=== PATIENT | male | born 1940 | race Caucasian/White ===

== ENCOUNTER 2017-11-30 13:09 | Inpatient (IN) | payer MEDICARE ==
[~2017-11-30] VITALS: Ht 185.4 cm; Wt 100.5 kg
[2017-11-30] VITALS (9 sets, daily range): BP systolic 119–166; BP diastolic 73–93; PULSE 62–106; RESP 14–18; TEMP 98.4–99; O2SAT 96–99
--- NOTE | 2017-11-30 14:13 | RADRPT ---
EXAM DATE/TIME: 11/30/2017 13:42 [place] COMPARISON: No previous studies available for comparison. INDICATIONS : sent pt, heart rhythm is off. MEDICAL HISTORY : None. SURGICAL HISTORY : cabg 10 years ago. ENCOUNTER: Initial ACUITY: 1 day PAIN SCORE: 0/10 LOCATION: Bilateral chest FINDINGS: The lungs are clear. The heart is minimally enlarged. The pulmonary vascularity is normal. There is n o evidence for infiltrate or failure. Sternal wires of previous bypass are noted. The portion of the bony skeleton visualized is unremarkable. CONCLUSION: Compensated cardiomegaly, history of bypass otherwise negative Tobias Spencer MD FACR on November 30, 2017 at 14:07 Board Certified Radiologist. This report was verified electronically.
[2017-11-30 15:49] LABS: AUTOMATED NEUTROPHIL # 4.3 TH/MM3 (1.8-7.7); BASOPHIL % 0.5 % (0.0-2.0); EOSINOPHIL # 0.5 TH/MM3 (0-0.4); EOSINOPHIL % 5.8 % (0.0-4.0); HEMATOCRIT 47.9 % (39.0-51.0); HEMOGLOBIN 16.7 GM/DL (13.0-17.0); LYMPH % 34.2 % (9.0-44.0); MEAN CELL VOLUME 92.7 FL (80.0-100.0); MEAN CORPUSCULAR HEMOGLOBIN 32.4 PG (27.0-34.0); MEAN CORPUSCULAR HGB CONC 34.9 % (32.0-36.0); MEAN PLATELET VOLUME 8.5 FL (7.0-11.0); MONO % 9.3 % (0.0-8.0); MONOCYTE # 0.8 TH/MM3 (0-0.9); NEUT % 50.2 % (16.0-70.0); PLATELET COUNT 312 TH/MM3 (150-450); RED BLOOD COUNT 5.16 MIL/MM3 (4.50-5.90); RED CELL DISTRIBUTION WIDTH 12.8 % (11.6-17.2); WHITE BLOOD COUNT 8.6 TH/MM3 (4.0-11.0)
[2017-11-30 16:00] LABS: ALBUMIN 4.1 GM/DL (3.4-5.0); ALT (GPT) 143 U/L (12-78); AST (GOT) 81 U/L (15-37); BICARBONATE 25.1 MEQ/L (21.0-32.0); BLOOD UREA NITROGEN 20 MG/DL (7-18); CALCIUM 9.1 MG/DL (8.5-10.1); CHLORIDE 104 MEQ/L (98-107); CREATININE 1.18 MG/DL (0.60-1.30); GLOMERULAR FILTRATION RATE 60 ML/MIN (>89); GLUCOSE,RANDOM 87 MG/DL (74-106); MAGNESIUM 2.1 MG/DL (1.5-2.5); SODIUM (NA) 138 MEQ/L (136-145)
[2017-11-30 16:05] LABS: ALKALINE PHOSPHATASE 172 U/L (45-117); TOTAL BILIRUBIN ADULT 0.7 MG/DL (0.2-1.0); TOTAL PROTEIN 9.6 GM/DL (6.4-8.2)
[2017-11-30 16:12] LABS: TROPONIN I 4.75 NG/ML (0.02-0.05)
[2017-11-30] MEDS ORDERED: METO1TAB43 PO (16:28)
[2017-11-30] MEDS ORDERED: ASPI-183 PO (16:28)
--- NOTE | 2017-11-30 16:29 | PD ---
HPI Chief Complaint: Cardiac Complaint Time Seen by Provider: 16:25 Travel History International Travel<30 days: No Contact w/Intl Traveler<30days: No Traveled to known affect area: No History of Present Illness HPI C/O THROAT BURNING SENSATION AT AROUND 2300 SINCE LAST NIGHT THAT KEPT HIM UP ALL NIGHT, HE PRESENTED TO WALK IN CLINIC THIS MORNING WHEN HE WAS DIAGNOSED WITH NEW ONSET ATRIAL FIB...PER PT NO PREVIOUS H/O AFIB, NOT ANTICOAGULATED AND TOOK A FULL ASPIRIN TODAY. PCP IN [place] ALL DENIES PMHX: HTN, HYPERCHOL, CABBGX5 Allergies-Medications (Allergen,Severity, Reaction): Coded Allergies: No Known Allergies (Unverified , 11/30/17) Review of Systems Except as stated in HPI: all other systems reviewed are Neg General / Constitutional: No: Fever Eyes: No: Visual changes HENT: Positive: Sore Throat Cardiovascular: No: Chest Pain or Discomfort Respiratory: No: Shortness of Breath Gastrointestinal: No: Abdominal Pain Genitourinary: No: Dysuria Musculoskeletal: No: Pain Skin: No Rash Neurologic: No: Weakness Psychiatric: No: Depression Endocrine: No: Polydipsia Hematologic/Lymphatic: No: Easy Bruising Physical Exam Narrative GENERAL: SKIN: Warm and dry. HEAD: Atraumatic. Normocephalic. EYES: Pupils equal and round. No scleral icterus. No injection or drainage. ENT: No nasal bleeding or discharge. Mucous membranes pink and moist. NECK: Trachea midline. No JVD. CARDIOVASCULAR: Regular rate and rhythm. RESPIRATORY: No accessory muscle use. Clear to auscultation. Breath sounds equal bilaterally. GASTROINTESTINAL: Abdomen soft, non-tender, nondistended MUSCULOSKELETAL: Extremities without clubbing, cyanosis, or edema. No obvious deformities. NEUROLOGICAL: Awake and alert. No obvious cranial nerve deficits. Motor grossly within normal limits. Five out of 5 muscle strength in the arms and legs. Normal speech. PSYCHIATRIC: Appropriate mood and affect; insight and judgment normal. Data Data Last Documented VS Vital Signs Date Time Temp Pulse Resp B/P (MAP) Pulse Ox O2 Delivery O2 Flow Rate FiO2 11/30/17 13:11 98.4 106 14 128/73 (91) 97 Orders Orders Complete Blood Count With Diff (11/30/17 13:32) Comprehensive Metabolic Panel (11/30/17 13:32) B-Type Natriuretic Peptide (11/30/17 13:32) Act Partial Throm Time (Ptt) (11/30/17 13:32) Prothrombin Time / Inr (Pt) (11/30/17 13:32) Magnesium (Mg) (11/30/17 13:32) Ckmb (Isoenzyme) Profile (11/30/17 13:32) Troponin I (11/30/17 13:32) Electrocardiogram (11/30/17 13:32) Chest, Pa & Lat (11/30/17 13:32) CKMB (11/30/17 15:17) CKMB% (11/30/17 15:17) Labs Laboratory Tests Test 11/30/17 15:17 White Blood Count 8.6 TH/MM3 Red Blood Count 5.16 MIL/MM3 Hemoglobin 16.7 GM/DL Hematocrit 47.9 % Mean Corpuscular Volume 92.7 FL Mean Corpuscular Hemoglobin 32.4 PG Mean Corpuscular Hemoglobin Concent 34.9 % Red Cell Distribution Width 12.8 % Platelet Count 312 TH/MM3 Mean Platelet Volume 8.5 FL Neutrophils (%) (Auto) 50.2 % Lymphocytes (%) (Auto) 34.2 % Monocytes (%) (Auto) 9.3 % Eosinophils (%) (Auto) 5.8 % Basophils (%) (Auto) 0.5 % Neutrophils # (Auto) 4.3 TH/MM3 Lymphocytes # (Auto) 3.0 TH/MM3 Monocytes # (Auto) 0.8 TH/MM3 Eosinophils # (Auto) 0.5 TH/MM3 Basophils # (Auto) 0.0 TH/MM3 CBC Comment DIFF FINAL Differential Comment Prothrombin Time 10.0 SEC Prothromb Time International Ratio 1.0 RATIO Activated Partial Thromboplast Time 26.8 SEC Blood Urea Nitrogen 20 MG/DL Creatinine 1.18 MG/DL Random Glucose 87 MG/DL Total Protein 9.6 GM/DL Albumin 4.1 GM/DL Calcium Level 9.1 MG/DL Magnesium Level 2.1 MG/DL Alkaline Phosphatase 172 U/L Aspartate Amino Transf (AST/SGOT) 81 U/L Alanine Aminotransferase (ALT/SGPT) 143 U/L Total Bilirubin 0.7 MG/DL Sodium Level 138 MEQ/L Potassium Level 4.0 MEQ/L Chloride Level 104 MEQ/L Carbon Dioxide Level 25.1 MEQ/L Anion Gap 9 MEQ/L Estimat Glomerular Filtration Rate 60 ML/MIN Total Creatine Kinase 132 U/L Creatine Kinase MB 9.6 NG/ML Troponin I 4.75 NG/ML B-Type Natriuretic Peptide 390 PG/ML MDM Medical Decision Making Medical Screen Exam Complete: Yes Emergency Medical Condition: Yes Medical Record Reviewed: Yes Interpretation(s) AFIB WITH CVR, NO STEMI PATTERN Critical Care Narrative CRITICAL CARE NOTE: With evaluation of the patient, labs, EKG, receipt of radiologic studies, administration of medications, reevaluation the patient and discussion of the patient with the admitting physicians, the total critical care time was [30] minutes. Time to perform other separately billable procedures was not included in the critical care time. Diagnosis Primary Impression: NONSTEMI Additional Impression: New onset a-fib Goyo Mojica MD Nov 30, 2017 16:29
[2017-11-30] MEDS ORDERED: NITROGLYCERIN 2% OINT 1 GM PACKET TOP ONE (16:45)
[2017-11-30] MEDS ORDERED: DILTIAZEM HCL 25 MG/5 ML VIAL IV ONE (16:45)
[2017-11-30] MEDS ORDERED: ENOXAPARIN SODIUM 80 MG/0.8 ML SYRINGE SQ ONE (16:45)
[2017-11-30] MEDS ORDERED: METOPROLOL TARTRATE 25 MG TAB PO ONE (17:15)
[2017-11-30] MEDS ORDERED: NALOXONE HCL 0.4 MG/ML AMP IV PUSH PRN (17:15)
[2017-11-30] MEDS ORDERED: SODIUM CHLORIDE 0.9% FLUSH 10 ML FLUSH IV FLUSH PRN (17:15)
[2017-11-30] MEDS ORDERED: MAGNESIUM HYDROXIDE SUSP 30 ML CUP PO PRN (17:15)
[2017-11-30] MEDS ORDERED: LACTULOSE SYRUP 20 GM/30 ML CUP PO PRN (17:15)
[2017-11-30] MEDS ORDERED: ACETAMINOPHEN 325 MG TAB PO PRN (17:15)
[2017-11-30] MEDS ORDERED: BISACODYL 10 MG SUPP RECTAL PRN (17:15)
[2017-11-30] MEDS ORDERED: SENNOSIDES 8.6 MG TAB PO PRN (17:15)
--- NOTE | 2017-11-30 20:41 | HHI.HP ---
HPI Service [facility] Primary Care Physician Unknown Admission Diagnosis NONSTEMI, NEW ONSET AFIB Diagnoses: Chief Complaint: Throat, chest burning sensation. Travel History International Travel<30 Days: No Contact w/Intl Traveler <30 Da: No Traveled to Known Affected Are: No History of Present Illness Mr. Condon is a pleasant 77 year old male with a history of CAD s/p CABG who presented to the ED due to a burning sensation in his throat, substernal chest with radiation to his neck to bilateral ears. He reports onset of these symptoms approximately two weeks ago. He attributed these symptoms to acid reflux. He did not have any nausea, vomiting, diaphoresis. Last night his symptoms were particularly worse and kept him up all night. Nothing seems to make it worse or bettter. He went to an urgent care and an EKG revealed Atrial Fibrillation and was directed to come to the ED. At the time of this interview, he reports no chest pain, shortness of breath, fever, chills. No cough, abdominal pain. No changes in bladder or bowel habits. He has taken a full dose (325mg) aspirin today. Review of Systems Except as stated in HPI: all other systems reviewed are Neg Past Family Social History Past Medical History CAD s/p CABG Hyperlipidemia Brain tumor (20 years ago). Past Surgical History CABG 11 years ago (Dr. Radha Croewll apparently did patient's surgery). Right leg surgery Brain tumor removal 20 years ago. Reported Medications Metoprolol succ 100mg Qday Aspirin 325mg Qday. Allergies: Coded Allergies: No Known Allergies (Unverified , 11/30/17) Family History Father from [place], Cardiomyopathy at the age of 76. Mother of old age at 94. Social History Drinks beer about 2 beer a day. Denies smoking or using illicit drugs. Quit smoking 20 years ago. Physical Exam Vital Signs Vital Signs Date Time Temp Pulse Resp B/P (MAP) Pulse Ox O2 Delivery O2 Flow Rate FiO2 11/30/17 20:03 11/30/17 19:34 62 16 133/84 (100) 99 Nasal Cannula 2.00 11/30/17 17:46 83 18 166/90 (115) 99 Room Air 11/30/17 13:11 98.4 106 14 128/73 (91) 97 Physical Exam GENERAL: This is a well-nourished, well-developed patient, in no apparent distress. SKIN: No rashes, ecchymoses or lesions. Warm and dry. HEAD: Atraumatic. Normocephalic. No temporal or scalp tenderness. EYES: Pupils equal round and reactive. No injection or drainage. ENT: Nose without bleeding, purulent drainage or septal hematoma. Airway patent. NECK: Trachea midline. No lymphadenopathy. Supple, nontender, no meningeal signs. CARDIOVASCULAR: Irreg Irreg, rate controlled without murmurs, gallops, or rubs. No JVD. RESPIRATORY: Clear to auscultation. Breath sounds equal bilaterally. No wheezes , rales, or rhonchi. GASTROINTESTINAL: Abdomen soft, non-tender, nondistended. No guarding. MUSCULOSKELETAL: Extremities without clubbing, cyanosis, or edema. NEUROLOGICAL: Awake and alert. Cranial nerves II through XII intact. No focal neurological deficits. Normal speech. Laboratory Laboratory Tests Test 11/30/17 15:17 11/30/17 19:17 White Blood Count 8.6 Red Blood Count 5.16 Hemoglobin 16.7 Hematocrit 47.9 Mean Corpuscular Volume 92.7 Mean Corpuscular Hemoglobin 32.4 Mean Corpuscular Hemoglobin Concent 34.9 Red Cell Distribution Width 12.8 Platelet Count 312 Mean Platelet Volume 8.5 Neutrophils (%) (Auto) 50.2 Lymphocytes (%) (Auto) 34.2 Monocytes (%) (Auto) 9.3 Eosinophils (%) (Auto) 5.8 Basophils (%) (Auto) 0.5 Neutrophils # (Auto) 4.3 Lymphocytes # (Auto) 3.0 Monocytes # (Auto) 0.8 Eosinophils # (Auto) 0.5 Basophils # (Auto) 0.0 CBC Comment DIFF FINAL Differential Comment Prothrombin Time 10.0 Prothromb Time International Ratio 1.0 Activated Partial Thromboplast Time 26.8 Blood Urea Nitrogen 20 Creatinine 1.18 Random Glucose 87 Total Protein 9.6 Albumin 4.1 Calcium Level 9.1 Magnesium Level 2.1 Alkaline Phosphatase 172 Aspartate Amino Transf (AST/SGOT) 81 Alanine Aminotransferase (ALT/SGPT) 143 Total Bilirubin 0.7 Sodium Level 138 Potassium Level 4.0 Chloride Level 104 Carbon Dioxide Level 25.1 Anion Gap 9 Estimat Glomerular Filtration Rate 60 Total Creatine Kinase 132 Creatine Kinase MB 9.6 Troponin I 4.75 B-Type Natriuretic Peptide 390 Result Diagram: 11/30/17 1517 11/30/17 1517 Imaging Last Impressions Chest X-Ray 11/30/17 1332 Signed Impressions: Service Date/Time: Thursday, November 30, 2017 13:42 - CONCLUSION: Compensated cardiomegaly, history of bypass otherwise negative Tobias Spencer MD FACR [place] VTE Risk Assessment Capsangeethai VTE Risk Assessment: Mod/High Risk (score >= 2) Caprini Risk Assessment Model Point Value = 1 Point Value = 2 Point Value = 3 Point Value = 5 Age 41-60 Minor surgery BMI > 25 kg/m2 Swollen legs Varicose veins or History of unexplained or recurrent spontaneous Oral contraceptives or hormone replacement Sepsis (< 1 month) Serious lung disease, including pneumonia (< 1 month) Abnormal pulmonary function Acute myocardial infarction Congestive heart failure (< 1 month) History of inflammatory bowel disease Medical patient at bed rest Age 61-74 Arthroscopic surgery Major open surgery (> 45 min) Laparoscopic surgery (> 45 min) Malignancy Confined to bed (> 72 hours) Immobilizing plaster cast Central venous access Age >= 75 History of VTE Family history of VTE Factor V Leiden Prothrombin [id number] Lupus anticoagulant Anticardiolipin antibodies Elevated serum homocysteine Heparin-induced thrombocytopenia Other congenital or acquired thrombophilia Stroke (< 1 month) Elective arthroplasty Hip, pelvis, or leg fracture Acute spinal cord injury (< 1 month) Prophylaxis Regimen Total Risk Factor Score Risk Level Prophylaxis Regimen 0-1 Low Early ambulation 2 Moderate Order ONE of the following: *Sequential Compression Device (SCD) *Heparin 5000 units SQ BID 3-4 Higher Order ONE of the following medications: *Heparin 5000 units SQ TID *Enoxaparin/Lovenox 40 mg SQ daily (WT < 150 kg, CrCl > 30 mL/min) *Enoxaparin/Lovenox 30 mg SQ daily (WT < 150 kg, CrCl > 10-29 mL/min) *Enoxaparin/Lovenox 30 mg SQ BID (WT < 150 kg, CrCl > 30 mL/min) AND/OR *Sequential Compression Device (SCD) 5 or more Highest Order ONE of the following medications: *Heparin 5000 units SQ TID (Preferred with Epidurals) *Enoxaparin/Lovenox 40 mg SQ daily (WT < 150 kg, CrCl > 30 mL/min) *Enoxaparin/Lovenox 30 mg SQ daily (WT < 150 kg, CrCl > 10-29 mL/min) *Enoxaparin/Lovenox 30 mg SQ BID (WT < 150 kg, CrCl > 30 mL/min) AND *Sequential Compression Device (SCD) Assessment and Plan Problem List: (1) NSTEMI (non-ST elevated myocardial infarction) ICD Code: I21.4 - Non-ST elevation (NSTEMI) myocardial infarction (2) New onset a-fib ICD Code: I48.91 - Unspecified atrial fibrillation Status: Acute (3) Hx of coronary artery bypass graft ICD Code: Z95.1 - Presence of aortocoronary bypass graft Assessment and Plan Mr. Condon is a pleasant 77 year old male with a history of CABG who presented to the ED due to substernal burning sensation along with throat burning sensation and radiation to the ears. ED work up indicated new onset Atrial fibrillation as well as elevation in Troponin. - NSTEMI - Will consult Cardiology for further input. Patient will likely need cardiac cath. NPO midnight - Patient received Lovenox 80mg by ED doctor. We will start him on heparin drip in the AM. - Start Metoprolol 25mg BID, Nitroglycerine 2% oint PRN for chest pain. - Continue Aspirin 81mg Qday - Continue statin but change Simvastatin to Lipitor 80mg QHS. - Per ED note, patient took an Aspirin 325mg today. - CXR reviewed by me, shows cardiomegaly. - Atrial fibrillation, likely new onset - EKG from urgent care and ED reviewed by me - shows Afib. - [id number] score is probably 2(age 77, CHF). - Will be a candidate for Apixaban 5mg BID for Afib Stroke prophylaxis. - Will order Echo. Continue Metoprolol 25mg BID. - Consider switching to home med Metoprolol succinate 100mg Qday. - Currently rate controlled, if needed, we will consider Cardizem - Hyperlipidemia - Patient takes Simvastatin. Will switch to Lipitor 80mg QHS. - CAD with a history of CABG - CXR shows cardiomegaly. 2D echo pending. - Depending on EF, consider additional heart failure medications including Torsemide, STEPH inhibitors. Full code. Heparin drip (Patient received full dose Lovenox in the ED once). Physician Certification 2 Midnight Certification Type: Admission for Inpatient Services Order for Inpatient Services The services are ordered in accordance with Medicare regulations or non- Medicare payer requirements, as applicable. In the case of services not specified as inpatient-only, they are appropriately provided as inpatient services in accordance with the 2-midnight benchmark. Estimated LOS (days): 2 days is the estimated time the patient will need to remain in the hospital, assuming treatment plan goals are met and no additional complications. Post-Hospital Plan: Home Abigail León DO Nov 30, 2017 20:41
[2017-11-30] MEDS: ATORVASTATIN 80 MG TAB PO SCH (21:43)
[2017-11-30] MEDS: SODIUM CHLORIDE 0.9% FLUSH 10 ML FLUSH IV FLUSH SCH (21:43)
[2017-11-30] MEDS ORDERED: NITROGLYCERIN 2% OINT 1 GM PACKET TOPICAL PRN (22:00)
[2017-12-01] VITALS (23 sets, daily range): BP systolic 102–139; BP diastolic 63–84; PULSE 65–117; RESP 16–22; TEMP 97.8–98.6; O2SAT 95–96
[2017-12-01 00:38] LABS: HEMATOCRIT 41.1 % (39.0-51.0); HEMOGLOBIN 13.8 GM/DL (13.0-17.0); MEAN CELL VOLUME 91.9 FL (80.0-100.0); MEAN CORPUSCULAR HEMOGLOBIN 30.8 PG (27.0-34.0); MEAN CORPUSCULAR HGB CONC 33.5 % (32.0-36.0); PLATELET COUNT 250 TH/MM3 (150-450); RED BLOOD COUNT 4.48 MIL/MM3 (4.50-5.90); RED CELL DISTRIBUTION WIDTH 12.9 % (11.6-17.2); WHITE BLOOD COUNT 7.6 TH/MM3 (4.0-11.0)
[2017-12-01] MEDS ORDERED: HEPARIN-D5W 25,000 U/250 ML 250 ML IV PRN ×2 (04:00)
--- NOTE | 2017-12-01 07:43 | PD.CONS ---
HPI Service cardiology Consult Requested By Reason for Consult NSTEMI, chest pain Primary Care Physician Unknown History of Present Illness This is a 77 yo M with history of CAD, CABG (~11 years ago) and HLD presented with chest pain and new onset afib. Pain is mid-sternal and refers to neck, symptoms started approximately 2 nights ago. He describes a burning sensation that started in epigastrum and referred to throat that worsened with laying supine; no SOB. Upon arrival to ED he was found to be in afib. Troponins have been increasing from 4.75, 5.17,5.98. He is currently resting comfortably without chest pain. He is followed by regularly by location man in [place]. (Shruthi Osorio) Review of Systems Consitutional: DENIES: Fatigue, Fever, Chills, Weight gain, Weight loss Respiratory: DENIES: Cough, Snoring, Shortness of breath, Wheezing, Sputum production Cardiovascular: DENIES: Palpitations, Syncope, Tachycardia Gastrointestinal: DENIES: Nausea, Vomiting, Change in bowel habits, Bloody stools, Melena (Shruthi Osorio) Past Family Social History Allergies: Coded Allergies: No Known Allergies (Unverified , 11/30/17) Past Medical History CAD s/p CABG Hyperlipidemia Brain tumor (20 years ago). Past Surgical History CABG 11 years ago (Dr. Radha Crowell apparently did patient's surgery). Right leg surgery Brain tumor removal 20 years ago. Reported Medications Reported Meds & Active Scripts Active Reported Metoprolol Succinate ER 24 HR (Metoprolol Succinate) 100 Mg Tab 100 Mg PO DAILY Aspirin 325 Mg Tab 325 Mg PO DAILY Active Ordered Medications Current Medications Medications (Trade) Dose Ordered Sig/Anaya Route Start Time Stop Time Status Last Admin (NS Flush) 2 ml UNSCH PRN IV FLUSH 11/30/17 17:15 (NS Flush) 2 ml BID IV FLUSH 11/30/17 21:00 11/30/17 21:43 (Tylenol) 650 mg Q4H PRN PO 11/30/17 17:15 (Narcan Inj) 0.4 mg UNSCH PRN IV PUSH 11/30/17 17:15 (Milk Of Magnesia Liq) 30 ml Q12H PRN PO 11/30/17 17:15 (Senokot) 17.2 mg Q12H PRN PO 11/30/17 17:15 (Dulcolax Supp) 10 mg DAILY PRN RECTAL 11/30/17 17:15 (Lactulose Liq) 30 ml DAILY PRN PO 11/30/17 17:15 (Lipitor) 80 mg HS PO 11/30/17 21:00 11/30/17 21:43 (Lopressor) 25 mg Q12HR PO 12/01/17 09:00 Heparin Sodium/ Dextrose 250 ml @ 10 mls/hr TITRATE PRN IV 12/01/17 04:00 12/01/17 04:11 (Aspirin Chew) 81 mg DAILY CHEW 12/01/17 09:00 (Nitroglycerin 2% Oint) 0.5 inch Q8HR PRN TOPICAL 11/30/17 22:00 11/30/17 23:37 Family History Father from [place], Cardiomyopathy at the age of 76. Mother of old age at 94. Social History Drinks beer about 2 beer a day. Denies smoking or using illicit drugs. Quit smoking 20 years ago. (Shruthi Osorio) Physical Exam Vital Signs Vital Signs Date Time Temp Pulse Resp B/P (MAP) Pulse Ox O2 Delivery O2 Flow Rate FiO2 12/01/17 06:00 103 12/01/17 05:00 97 12/01/17 04:00 109 12/01/17 03:00 98 12/01/17 03:00 98.6 101 16 122/79 (93) 95 12/01/17 02:00 100 12/01/17 01:00 97 12/01/17 00:00 100 11/30/17 23:30 98.8 103 16 124/75 (91) 96 11/30/17 23:00 102 11/30/17 22:00 92 11/30/17 21:45 92 119/74 (89) 11/30/17 21:00 96 11/30/17 20:03 11/30/17 20:00 99.0 75 16 156/93 (114) 96 11/30/17 20:00 75 11/30/17 19:34 62 16 133/84 (100) 99 Nasal Cannula 2.00 11/30/17 17:46 83 18 166/90 (115) 99 Room Air 11/30/17 13:11 98.4 106 14 128/73 (91) 97 Physical Exam GENERAL: SKIN: Warm and dry. HEAD: Atraumatic. Normocephalic. EYES: Pupils equal and round. ENT: No nasal bleeding or discharge. t. NECK: Trachea midline. No JVD. CARDIOVASCULAR: Irregularly irregular rate and rhythm RESPIRATORY: No accessory muscle use. Clear to auscultation. Breath sounds equal bilaterally. GASTROINTESTINAL: Abdomen soft, non-tender, nondistended MUSCULOSKELETAL: Extremities without clubbing, cyanosis, or edema. No obvious deformities. NEUROLOGICAL: Awake and alert. No obvious cranial nerve deficits. Normal speech. PSYCHIATRIC: Appropriate mood and affect; insight and judgment normal. Laboratory Laboratory Tests Test 11/30/17 15:17 11/30/17 19:17 12/01/17 00:14 12/01/17 00:18 White Blood Count 8.6 7.6 Red Blood Count 5.16 4.48 Hemoglobin 16.7 13.8 Hematocrit 47.9 41.1 Mean Corpuscular Volume 92.7 91.9 Mean Corpuscular Hemoglobin 32.4 30.8 Mean Corpuscular Hemoglobin Concent 34.9 33.5 Red Cell Distribution Width 12.8 12.9 Platelet Count 312 250 Mean Platelet Volume 8.5 8.0 Neutrophils (%) (Auto) 50.2 Lymphocytes (%) (Auto) 34.2 Monocytes (%) (Auto) 9.3 Eosinophils (%) (Auto) 5.8 Basophils (%) (Auto) 0.5 Neutrophils # (Auto) 4.3 Lymphocytes # (Auto) 3.0 Monocytes # (Auto) 0.8 Eosinophils # (Auto) 0.5 Basophils # (Auto) 0.0 CBC Comment DIFF FINAL Differential Comment Prothrombin Time 10.0 Prothromb Time International Ratio 1.0 Activated Partial Thromboplast Time 26.8 27.3 Blood Urea Nitrogen 20 Creatinine 1.18 Random Glucose 87 Total Protein 9.6 Albumin 4.1 Calcium Level 9.1 Magnesium Level 2.1 Alkaline Phosphatase 172 Aspartate Amino Transf (AST/SGOT) 81 Alanine Aminotransferase (ALT/SGPT) 143 Total Bilirubin 0.7 Sodium Level 138 Potassium Level 4.0 Chloride Level 104 Carbon Dioxide Level 25.1 Anion Gap 9 Estimat Glomerular Filtration Rate 60 Total Creatine Kinase 132 Creatine Kinase MB 9.6 Troponin I 4.75 5.17 5.98 B-Type Natriuretic Peptide 390 (Shruthi Osorio) Result Diagram: 12/01/17 0018 11/30/17 1517 Imaging Last 24 hours Impressions Chest X-Ray 11/30/17 1332 Signed Impressions: Service Date/Time: Thursday, November 30, 2017 13:42 - CONCLUSION: Compensated cardiomegaly, history of bypass otherwise negative Tobias Spencer MD FACR (Shruthi Osorio) Assessment and Plan Problem List: (1) New onset a-fib ICD Codes: I48.91 - Unspecified atrial fibrillation Status: Acute (2) NSTEMI (non-ST elevated myocardial infarction) ICD Codes: I21.4 - Non-ST elevation (NSTEMI) myocardial infarction Assessment and Plan This is a 77 yo M with history of CAD, CABG x 5 (~11 years ago) and HLD presented with chest pain and new onset afib. NSTEMI- elevated troponin. will proceed with LHC today. hold heparin at 8am afib- new onset, rate controlled. CHADS-VASC>3 will need anticoagulant when appropriate (Shruthi Osorio) Assessment and Plan C - 4/5 grafts patent. med mgt. afib anticoagulation tomorrow sm (Familia Rodriguez MD) Shruthi Osorio Dec 01, 2017 07:43 Familia Rodriguez MD Dec 01, 2017 09:35
[2017-12-01] MEDS: ASPIRIN 81 MG CHEW TAB CHEW SCH (08:10)
[2017-12-01] MEDS: METOPROLOL TARTRATE 25 MG TAB PO SCH ×2 (08:10→21:26)
[2017-12-01] MEDS: SODIUM CHLORIDE 0.9% FLUSH 10 ML FLUSH IV FLUSH SCH ×2 (08:11→21:26)
[2017-12-01] MEDS ORDERED: HEPARIN-NS/PF INJ 1,000 ML ONE (08:58)
[2017-12-01] MEDS ORDERED: MIDAZOLAM HCL 2 MG/2 ML VIAL ONE (09:04)
[2017-12-01] MEDS ORDERED: BACITRACIN OINT 0.9 GM PKT TOP ONE (09:45)
[2017-12-01] MEDS ORDERED: LORazepam 2 MG/ML VIAL IV PUSH PRN (09:45)
[2017-12-01] MEDS ORDERED: LIDOCAINE HCL 1% 50 ML VIAL INFIL PRN (09:45)
--- NOTE | 2017-12-01 10:02 | MA ---
cc: RASHI GAMINO DATE 12/01/2017 PROCEDURE PERFORMED 1. Fluoroscopy with interpretation. 2. Coronary angiography. 3. Coronary bypass graft angiography. METHOD The risks, benefits and alternatives were discussed with the patient. The patient understood and consented to the procedure. The was brought into the Catheterization Lab, placed on the catheterization table. The right groin was prepped and draped in sterile fashion. The right groin was anesthetized with 2% lidocaine. The right common femoral artery was cannulated. A 5-Kinyarwanda, 11-cm sheath was placed without difficulty. CORONARY ANGIOGRAPHY 1. Left main coronary has minor luminal irregularities. 2. Left anterior descending coronary artery is 99% subtotally occluded in the mid-segment. The proximal segment has moderate calcium present but is patent. The diagonal branch with 80% proximal stenosis. 3. Left circumflex has an obtuse marginal branch and is occluded. The circumflex proper wraps around the annulus but gives rise to just small posterolateral branches. 4. Right coronary is occluded in the mid-segment. CORONARY ARTERY BYPASS GRAFT ANGIOGRAPHY 1. Left internal mammary to left anterior descending coronary is widely patent. There is a sub-branch that leads to the sternum which may draw some blood flow but likely significant enough to cause ischemia. 2. Saphenous vein graft to the diagonal branch is widely patent. The diagonal branch is small caliber size with mild luminal irregularities. 3. Saphenous vein graft to an obtuse marginal branch is widely patent. The obtuse marginal branch has mild luminal irregularities. 4. Saphenous vein graft to the right coronary artery is widely patent. Posterior descending has mild luminal irregularities. 5. Saphenous vein graft likely to a second obtuse marginal branch is occluded in the proximal segment of the graft. CONCLUSIONS 1. Severe [place] three-vessel coronary artery disease. 2. 4 of 5 coronary bypass grafts widely patent. PLAN Saphenous vein graft likely to the circumflex distribution is now occluded. There is no good approachable vessel from a [place] coronaries perspective. We will plan to medically manage his symptoms. Continue aspirin, statin, beta ko and a long-acting nitrate. We will also need to consider anticoagulation for his atrial fibrillation tomorrow. MD BIJAN Gonzalez/AMEYA /9:25 AM 9:34 AM
--- NOTE | 2017-12-01 10:28 | CATHPROC ---
[employer] (TTN) HIS Report Study Information Study Number Admission Scheduled Start Study Start [id number] Nov 30 2017 5:12PM 12/01/2017 Dec 01 2017 8:29AM [facility] Service Cardiac Catheterization Admit Source Facility Department Emergency department [facility] - [employer] [employer] Physician and Clinical Staff Initial Familia Lau Install Technician Onel Marroquin,UNIQUE Recorder Vani Seth,RT(R) (BS) Scrub Franci Link,RT(R) Procedures Performed Procedure Location (Site) Vessel Name Coronary Angiograms LCA Left Coronary Coronary Angiograms RCA Right Coronary Coronary Angiograms PIERRE-LAD Left Coronary Coronary Angiograms SVG-DIAG Left Coronary Coronary Angiograms SVG-LCX CIRC Coronary Angiograms SVG-RCA Right Coronary Coronary Angiograms SVG Equipment Time Floral Arranger Description Size Mfg Part Number Used/Scraped TRANSDUCER, TRUWAVE [id number] 08:30 Nexus eWater * Used W/STOCKCOCK *[id number] *[id number] *[id number] 08:30 MEDLINE INDUSTRIES PACK, CCL CUSTOM * Used *[id number] 08:30 MEDLINE PACER PEN, SKIN DUAL W/ RULER * Used *[id number] 09:26 MEDTRONIC IM DXTERITY CATHETER FR 5 Used *[id number] 09:10 MEDTRONIC JL 4.0 DXTERITY CATHETER FR 5 Used *[id number] 08:30 MERIT MEDICAL WIRE, 3MMJ .035 180CM 180CM Used *[id number] 09:17 [employer] WIRE, EXCHANGE 260CM 3MMJ 260CM Used *[id number] 09:19 [employer] WIRE, EXCHANGE 260CM 3MMJ 260CM Used *[id number] 08:30 NAMIC MANIFOLD, 4 PORT * Used *[id number] 08:30 NYCOMED OMNIPAQUE, 350 MG, 150ML 150ML [id number] Used [id number] 08:30 [employer]EVENSON [employer] BLANKET,WARM AIR CCL * Used *[id number] 08:30 TERUMO MEDICAL SHEATH, FR5 TERUMO (10CM) FR 5 Used *[id number] Equipment Model, Serial, Lot Number and Expiration Data Description Model Number Serial Number Lot Number Expiration Date IM DXTERITY CATHETER [id number] 03-25-2020 JL 4.0 DXTERITY CATHETER [id number] 06-24-2020 History: Allergies Allergy Reaction No Known Allergies History: Risk Factors Family History of Hypertension Dyslipidemia Previous UT Previous Heart Failure Premature CAD Yes Yes No No No Prior Valve Prior PCI Prior CABG Prior CABGDate Surgery No No Yes 11/23/2006 Cerebrovascular Peripheral Artery Chronic Lung On Dialysis Diabetes Disease Disease Disease No Yes No No No History: Symptoms/Diagnosis Selection Items Chest pain History: Stress Tests Stress or Imaging Studies Performed No History: Other Current Smoker Method Quit Packs a Day Years Used Pack Years No Cigarettes 20 Years Ago 1 25 25 Labs Hgb (g/dl) Hct (%) WBC (l/cumm) Platelets (thousands) 11.60-17.00 35.00-51.00 4.00-11.00 150.00-450.00 13.8 41.1 7.6 250 Glucose (mg/dl) BUN (mg/dl) Creatinine (mg/dl) BUN:Creatinine (1:x) 74.00-106.00 7.00-18.00 0.50-1.30 10.00-20.00 87 20 1.1 18.2 Na (meq/l) K (meq/l) 136.00-145.00 3.50-5.10 138 4 INR (PTT:PT) 0.90-1.10 1 CPK-MB (ng/ML) 0.50-3.60 Not Drawn Medication Medication Total Dose (Bolus/Oral) Medication Total Dosage/Unit 1% XYLOCAINE 20 mL FENTANYL 100 mcg OXYGEN 2 l/min VERSED 2 mg Medications (Bolus/Oral) Medication Time Given Dosage/Unit Administered By Reason VERSED 12/01/2017 9:17:00 AM 1 mg Onel Marroquin 1 mg VERSED given in lab by Onel Marroquin RN in Left Forearm via Peripheral IV. 1% XYLOCAINE 12/01/2017 9:17:57 AM 20 mL Familia Rodriguez 20 mL 1% XYLOCAINE given in lab by Familia Rodriguez in Right Groin via Subcutaneous. FENTANYL 12/01/2017 9:18:07 AM 50 mcg Onel Marroquin 50 mcg FENTANYL given in lab by Onel Marroquin RN in Left Forearm via Peripheral IV. OXYGEN 12/01/2017 9:18:44 AM 2 l/min Onel Marroquin 2 l/min OXYGEN given in lab by Onel Marroquin RN via Nasal. VERSED 12/01/2017 9:27:35 AM 1 mg Onel Marroquin 1 mg VERSED given in lab by Onel Marroquin RN in Left Forearm via Peripheral IV. FENTANYL 12/01/2017 9:28:37 AM 25 mcg Onel Marroquin 25 mcg FENTANYL given in lab by Onel Marroquin RN in Left Forearm via Peripheral IV. FENTANYL 12/01/2017 9:35:31 AM 25 mcg Onel Marroquin 25 mcg FENTANYL given in lab by Onel Marroquin RN in Left Forearm via Peripheral IV. Medication (Drip) Medication Time Given Dosage/Unit Concentration/Unit Diluent (ml) Solutio n IV Solutions 12/01/2017 8:47:23 AM 0 mL (IV) 500 NaCl .9 IV Solutions given in lab by Onel Marroquin RN in Left Forearm via Peripheral IV. Pump/Drip Flow = 30 ml/hr using NaCl .9. Initial Case Assessment Cardiovascular HR Rhythm NIBP Chest Pain 99 a-fib 119/90 0 Edema Present Skin color Skin None Normal Warm Dry Circulatory - Right Pulses Dorsalis Pedis Femoral 1 1 Scale (0,1,2,3,4,d) Circulatory - Left Pulses Dorsalis Pedis Femoral 1 1 Scale (0,1,2,3,4,d) Circulatory - Lower Extremities Color Lower Right Color Lower Left Normal Normal Neurological State Oriented to time-place- Alert Moves all extremities person Respiration - General Respiration Rate SpO2 (%) (B/min) 18 95 Chronological Log Time Study Chronological Log 8:47:07 Patient arrived via Bed. 8:47:09 Patient Name, D.O.B, / Armband Verified By R.N. 8:47:10 Consent signed by the physician and the patient and verified by the [employer] staff. 8:47:13 Pre-op and post- op instructions given; patient acknowledges understanding of instructions. 8:47:13 Verbal Stimulation=2 Physical Stimulation=2 Airway=2 Respiration=2 TOTAL=8. (0=absent, 1=li mited, 2=present) 8:47:15 Presedation assessment performed by [employer] RN. 8:47:17 Patient has been NPO for More than 6Hrs. 8:47:20 Skin Breakdown none per pt 8:47:20 Patient Warmer Placed on the Table. 8:47:21 Becki Prominences Protected 8:47:22 A # 20 IV was noted in the Forearm (left). Grade = 0 IV Solutions given in lab by Onel Marroquin RN in Left Forearm via Peripheral IV. Pump/Drip Jd w = 30 ml/hr using NaCl 8:47:23 .9. 8:47:24 History and physical on the chart or being dictated. Assessment: Initial Case, HR=99 BPM, Rhythm=a-fib, TOYQ=278/90 mmhg, Chest Pain=0, Edema=None, Color=Normal, Skin = Warm, Dry Right Pulses: Baltazar Ped=1, Femoral=1 Left Pulses: Baltazar Ped=1, Femoral=1 8:47:24 Lower Right Extremities: Color=Normal Lower Left Extremities: Color=Normal Neurological: State=Alert, Ox3, MASSEY Respiration: Resp=18 B/min, SpO2=95 % Vitals capture started with the following parameters, Patient=Adult, Interval=5 min, Initial Pre auent=614 mmHg, 9:00:58 Deflation Rate=5 mmHg, Cuff placed on Left Arm 9:01:29 HR=94 bpm, LFDB=337/90 mmhg, SpO2=94.0 %, Resp=32 B/min, Pain=0, Radha=10, Mayberry=2 9:01:53 Bilateral groins prepped with 2% chlorhexidine, and draped after a 3 minute waiting time. 9:06:30 HR=91 bpm, IFVP=339/80 mmhg, SpO2=93.0 %, Resp=15 B/min, Pain=0, Radha=10, Mayberry=2 9:07:32 Pressure channel 1 zeroed. 9:08:00 paged 9:08:21 MD responded 9:11:33 IQ=986 bpm, HCIW=280/73 mmhg, SpO2=92.0 %, Resp=23 B/min, Pain=0, Radha=10, Mayberry=2 9:13:07 MD arrived 9:13:20 Reference ECG taken 9:16:30 ZO=155 bpm, LSSU=073/68 mmhg, Resp=19 B/min, Pain=0, Radha=10, Mayberry=2 9:17:00 1 mg VERSED given in lab by Burfield, Onel, RN in Left Forearm via Peripheral IV. Time Out. Correct patient, correct procedure, correct physician, power injector not loaded with contrast with surgical 9:17:26 team present. Time Out Concurred by MD and individual staff in procedure. 9:17:40 Case Start 9:17:57 20 mL 1% XYLOCAINE given in lab by Familia Rodriguez in Right Groin via Subcutaneous. 9:18:07 50 mcg FENTANYL given in lab by Onel Marroquin RN in Left Forearm via Peripheral IV. 9:18:44 2 l/min OXYGEN given in lab by Onel Marroquin RN via Nasal. 9:19:07 Access site was Right Femoral Artery. 9:19:15 A SHEATH, FR5 TERUMO (10CM) FR 5 was advanced into the Fem Art (right) using the Percutaneou s technique. A JL 4.0 DXTERITY CATHETER FR 5 was advanced over a wire. OMNIPAQUE, 350 MG, 150ML 150ML was use d for 9:19:48 injections. Recorded Pressure: Ao, HR=90, Condition=Condition 1 9:20:52 (Aorta) Ao 100/62/79 9:21:06 The LCA was injected and visualized at various angles. OMNIPAQUE, 350 MG, 150ML 150ML used. 9:21:31 FD=551 bpm, QSNE=038/68 mmhg, SpO2=94.0 %, Resp=23 B/min, Pain=0, Radha=10, Mayberry=2 9:21:45 Catheter was removed A JR 4.0 INFINITI CATHETER FR 5 was advanced over a wire. OMNIPAQUE, 350 MG, 150ML 150ML was use d for 9:21:47 injections. 9:23:01 The RCA was injected and visualized at various angles. OMNIPAQUE, 350 MG, 150ML 150ML used. 9:23:53 The SVG (stump) was injected and visualized at various angles. OMNIPAQUE, 350 MG, 150ML 150M L used. 9:24:40 The SVG-DIAG was injected and visualized at various angles. OMNIPAQUE, 350 MG, 150ML 150ML u sed. 9:24:58 The SVG-LCX was injected and visualized at various angles. OMNIPAQUE, 350 MG, 150ML 150ML us ed. 9:26:32 HR=95 bpm, QJRT=219/73 mmhg, Resp=22 B/min, Pain=0, Radha=10, Mayberry=2 After removing the current catheter a IM DXTERITY CATHETER FR 5 was advanced over a WIRE, EXCHAN GE 260CM 9:26:38 3MMJ 260CM. 9:27:35 1 mg VERSED given in lab by Onel Marroquin RN in Left Forearm via Peripheral IV. 9:27:56 The PIERRE-LAD was injected and visualized at various angles. OMNIPAQUE, 350 MG, 150ML 150ML u sed. 9:28:37 25 mcg FENTANYL given in lab by Onel Marroquin RN in Left Forearm via Peripheral IV. After removing the current catheter a MPA-2 INFINITI CATHETER FR 5 was advanced over a WIRE, E XCHANGE 260CM 9:28:41 3MMJ 260CM. 9:31:06 The SVG-RCA was injected and visualized at various angles. OMNIPAQUE, 350 MG, 150ML 150ML used. 9:31:33 JQ=655 bpm, ZNOQ=263/67 mmhg, SpO2=94.0 %, Resp=22 B/min, Pain=0, Radha=10, Mayberry=2 9:31:56 Catheter was removed 9:32:40 Case End 9:32:58 Catheter(s) removed without difficulty 9:33:03 No case complications noted. 9:33:09 Bedside Report will be given. 9:35:31 25 mcg FENTANYL given in lab by Onel Marroquin RN in Left Forearm via Peripheral IV. 9:36:28 HR=86 bpm, JJOH=700/70 mmhg, SpO2=96.0 %, Resp=19 B/min, Pain=0, Radha=10, Mayberry=2 9:36:57 Sheath removed; pressure applied to access site. 9:41:31 FY=170 bpm, NIBP=93/52 mmhg, SpO2=93.0 %, Resp=22 B/min, Pain=0, Radha=10, Mayberry=2 9:46:26 HR=96 bpm, SYBR=660/74 mmhg, SpO2=91.0 %, Resp=24 B/min, Pain=0, Radha=10, Mayberry=2 9:51:33 HR=95 bpm, YVXQ=547/67 mmhg, Resp=19 B/min, Pain=0, Radha=10, Mayberry=2 9:52:32 Sterile dressing applied to site 9:54:43 Vitals capture stopped. 9:59:53 Patient moved to stretcher End Study - Contrast Media Used In Study Contrast Total Opened (mL) Total Used (mL) Total Wasted (mL) Omnipaque 90 90 0 End Study - Maximum Contrast Load Max Contrast Load (mL) 454.5 End Study - Radiation Exposure Fluoro Time (minutes) 4.0 End Study - Patient Disposition Complications Transferred To Interventional Outcome No Telemetry Bed No attempt made
[2017-12-01] MEDS ORDERED: IOHEXOL 350 MG/ML 100 ML BTL (for Cath Lab) OTHER ONE (10:53)
[2017-12-01] MEDS: ISOSORBIDE MONONITRATE 60 MG TAB PO SCH (11:55)
--- NOTE | 2017-12-01 12:02 | ECHRPT ---
Indication: Chest Pain CONCLUSIONS The left ventricular systolic function is normal with an estimated ejection fraction in the range of 55-60%. Normal left ventricular size. Wall thickness is measured at the upper limits of normal. No regional wall motion abnormalities are present. The left atrial size is mildly dilated. Trace mitral valve regurgitation. Calcification of the right coronary cusp. BP: 122 / 79 HR: 93 Rhythm: Atrial fibrillation MEASUREMENTS (Male / Female) Normal Values Technical Quality:Good 2D ECHO LV Diastolic Diameter PLAX 3.8 cm 4.2 - 5.9 / 3.9 - 5.3 cm LV Systolic Diameter PLAX 2.8 cm IVS Diastolic Thickness 1.2 cm 0.6 - 1.0 / 0.6 - 0.9 cm LVPW Diastolic Thickness 1.2 cm 0.6 - 1.0 / 0.6 - 0.9 cm LV Relative Wall Thickness 0.6 RV Internal Dim ED PLAX 2.6 cm LVOT Diameter 1.6 cm LA Systolic Diameter LX 4.3 cm 3.0 - 4.0 / 2.7 - 3.8 cm LV Ejection Fraction MOD 4C 59.5 % LV Cardiac Index MOD 4C 1789.6 cm/minm LV Ejection Fraction 4C AL 60.3 % LV Cardiac Index 4C AL 1877.5 cm/minm M-MODE Aortic Root Diameter MM 3.0 cm LA Systolic Diameter MM 4.8 cm LA Ao Ratio MM 1.6 AV Cusp Separation MM 2.0 cm DOPPLER AV Peak Velocity 113.0 cm/s AV Peak Gradient 5.1 mmHg LVOT Peak Velocity 85.9 cm/s LVOT Peak Gradient 3.0 mmHg AV Area Cont Eq pk 1.5 cm MV Area PHT 4.3 cm LV E' Septal Velocity 12.4 cm/s PV Peak Velocity 100.0 cm/s PV Peak Gradient 4.0 mmHg FINDINGS LEFT VENTRICLE The left ventricular systolic function is normal with an estimated ejection fraction in the range of 55-60%. Normal left ventricular size. Wall thickness is measured at the upper limits of normal. No regional wall motion abnormalities are present. RIGHT VENTRICLE Normal right ventricular size and systolic function. LEFT ATRIUM The left atrial size is mildly dilated. RIGHT ATRIUM The right atrial size is normal. ATRIAL SEPTUM Normal atrial septal thickness without atrial level shunting by limited color doppler interrogation. AORTA The aortic root and proximal ascending aorta are normal in size on limited imaging. MITRAL VALVE Structurally normal mitral valve. Trace mitral valve regurgitation. AORTIC VALVE Trileaflet aortic valve. Calcification of the right coronary cusp. TRICUSPID VALVE Structurally normal tricuspid valve. No tricuspid valve stenosis or regurgitation. PULMONARY VALVE The pulmonary valve is not well visualized. VESSELS The inferior vena cava is normal in size. PERICARDIUM No pericardial effusion. Familia Rodriguez MD, FACC (Electronically Signed) Final Date:01 December 2017 12:01
--- NOTE | 2017-12-01 15:22 | EKG ---
Date Performed: 11/30/2017 Time Performed: 22:54:10 PTAGE: 77 years EKG: Atrial fibrillation with rapid ventricular response Right axis deviation Possible anterior infarct - age undetermined Abnormal ECG PREVIOUS TRACING : 11/30/2017 19.34 Compared to prior tracing no significant change DOCTOR: Jayce Perea Interpretating Date/Time 12/01/2017 15:22:09
--- NOTE | 2017-12-01 15:22 | EKG ---
Date Performed: 11/30/2017 Time Performed: 19:34:05 PTAGE: 77 years EKG: ATRIAL FIBRILLATION WITH RAPID VENTRICULAR RESPONSE POSSIBLE RIGHT VENTRICULAR HYPERTROPHY MINIMAL ST DEPRESSION ABNORMAL ECG PREVIOUS TRACING : 11/30/2017 14.54 Compared to prior tracing no significant change DOCTOR: Jayce Perea Interpretating Date/Time 12/01/2017 15:21:18
--- NOTE | 2017-12-01 15:23 | EKG ---
Date Performed: 11/30/2017 Time Performed: 14:54:44 PTAGE: 77 years EKG: ATRIAL FIBRILLATION POSSIBLE RIGHT VENTRICULAR HYPERTROPHY MINIMAL ST DEPRESSION ABNORMAL E CG NO PREVIOUS TRACING DOCTOR: Jayce Perea Interpretating Date/Time 12/01/2017 15:22:52
--- NOTE | 2017-12-01 19:50 | HHI.PR ---
Subjective Remarks Patient seen around noon, after cardiac catheterization. Says he is feeling all right. Reports chest pain has resolved. Objective Vital Signs Date Time Temp Pulse Resp B/P (MAP) Pulse Ox O2 Delivery O2 Flow Rate FiO2 12/01/17 17:00 102 12/01/17 16:00 94 12/01/17 15:00 96 12/01/17 15:00 98.5 97 18 102/63 (76) 96 12/01/17 14:00 90 12/01/17 13:00 90 12/01/17 12:00 88 12/01/17 11:00 91 12/01/17 11:00 98.5 95 20 111/64 (80) 95 12/01/17 10:11 95 21 12/01/17 08:00 112 12/01/17 07:00 98.6 117 20 139/82 (101) 95 12/01/17 07:00 113 12/01/17 06:00 103 12/01/17 05:00 97 12/01/17 04:00 109 12/01/17 03:00 98 12/01/17 03:00 98.6 101 16 122/79 (93) 95 12/01/17 02:00 100 12/01/17 01:00 97 12/01/17 00:00 100 11/30/17 23:30 98.8 103 16 124/75 (91) 96 11/30/17 23:00 102 11/30/17 22:00 92 11/30/17 21:45 92 119/74 (89) 11/30/17 21:00 96 11/30/17 20:03 11/30/17 20:00 99.0 75 16 156/93 (114) 96 11/30/17 20:00 75 I/O 11/30/17 11/30/17 11/30/17 12/01/17 12/01/17 12/01/17 07:00 15:00 23:00 07:00 15:00 23:00 Intake Total 480 ml 42 ml 480 ml Output Total 550 ml 600 ml Balance -70 ml 42 ml -120 ml Intake Oral 480 ml 480 ml IV Total 42 ml Output Urine Total 550 ml 600 ml # Bowel Movements 0 0 Result Diagram: 12/01/17 0018 11/30/17 1517 Objective Remarks GENERAL: Patient lying in bed. Appears comfortable. Alert and oriented 4 SKIN: Warm and dry. HEAD: Normocephalic. EYES: No scleral icterus. No injection or drainage. NECK: Supple, trachea midline. No JVD. CARDIOVASCULAR: Regular rate and rhythm without murmurs, gallops, or rubs. RESPIRATORY: Breath sounds equal bilaterally. No accessory muscle use. GASTROINTESTINAL: Abdomen soft, non-tender, nondistended. MUSCULOSKELETAL: No cyanosis, or edema. BACK: Nontender without obvious deformity. No CVA tenderness. A/P Assessment and Plan Mr. Condon is a pleasant 77 year old male with a history of CABG who presented to the ED due to substernal burning sensation along with throat burning sensation and radiation to the ears. ED work up indicated new onset Atrial fibrillation as well as elevation in Troponin. //NSTEMI //Diastolic CHF - Will consult Cardiology for further input. Patient will likely need cardiac cath. NPO midnight - Patient received Lovenox 80mg by ED doctor. We will start him on heparin drip in the AM. - Start Metoprolol 25mg BID, Nitroglycerine 2% oint PRN for chest pain. - Continue Aspirin 81mg Qday - Continue statin but change Simvastatin to Lipitor 80mg QHS. - Per ED note, patient took an Aspirin 325mg today. - CXR reviewed by me, shows cardiomegaly. = Status post cardiac catheterization which shows single bypass down. No stenting. Cardiology following. Cardiogram with preserved ejection fraction. Cardiology adjusting medications. Appreciate assistance. //Atrial fibrillation, likely new onset - EKG from urgent care and ED reviewed by me - shows Afib. - ASL2LGLeiw score is probably 2(age 77, CHF). - Will be a candidate for Apixaban 5mg BID for Afib Stroke prophylaxis. - Will order Echo. Continue Metoprolol 25mg BID. - Consider switching to home med Metoprolol succinate 100mg Qday. - Currently rate controlled, if needed, we will consider Cardizem = Regimen as per cardiology. cont metoprolol twice daily. Appreciate assistance. We'll need to address anticoagulation tomorrow as per cardiology //Hyperlipidemia - Patient takes Simvastatin. Will switch to Lipitor 80mg QHS. Discharge Planning Status post cardiac catheter 12/01. -Continued adjustment of medications by cardiology. Pending cardiology clearance. Cl Solorio MD Dec 01, 2017 19:50
[2017-12-01] MEDS: ATORVASTATIN 80 MG TAB PO SCH (21:26)
[2017-12-02] VITALS (10 sets, daily range): BP systolic 124–129; BP diastolic 66–70; PULSE 62–75; RESP 14–16; TEMP 97.8–98.4; O2SAT 92–95
[2017-12-02] MEDS: ISOSORBIDE MONONITRATE 60 MG TAB PO SCH (05:47)
[2017-12-02 06:30] LABS: AUTOMATED NEUTROPHIL # 4.7 TH/MM3 (1.8-7.7); BASOPHIL # 0.1 TH/MM3 (0-0.2); BASOPHIL % 0.7 % (0.0-2.0); EOSINOPHIL # 0.4 TH/MM3 (0-0.4); EOSINOPHIL % 5.2 % (0.0-4.0); HEMATOCRIT 39.4 % (39.0-51.0); HEMOGLOBIN 13.3 GM/DL (13.0-17.0); LYMPH % 25.9 % (9.0-44.0); LYMPHOCYTE # 2.1 TH/MM3 (1.0-4.8); MEAN CELL VOLUME 92.3 FL (80.0-100.0); MEAN CORPUSCULAR HEMOGLOBIN 31.2 PG (27.0-34.0); MEAN CORPUSCULAR HGB CONC 33.8 % (32.0-36.0); MEAN PLATELET VOLUME 8.3 FL (7.0-11.0); MONO % 10.3 % (0.0-8.0); MONOCYTE # 0.8 TH/MM3 (0-0.9); NEUT % 57.9 % (16.0-70.0); PLATELET COUNT 260 TH/MM3 (150-450); RED BLOOD COUNT 4.27 MIL/MM3 (4.50-5.90); RED CELL DISTRIBUTION WIDTH 12.7 % (11.6-17.2); WHITE BLOOD COUNT 8.1 TH/MM3 (4.0-11.0)
[2017-12-02 06:54] LABS: BICARBONATE 26.7 MEQ/L (21.0-32.0); CALCIUM 8.3 MG/DL (8.5-10.1); CREATININE 1.06 MG/DL (0.60-1.30)
--- NOTE | 2017-12-02 07:54 | PD.CARD.PN ---
Subjective Subjective Remarks No chest pain, shortness of breath, or palpitations. Agreeable for anticoagulation. (Trey Leon) Objective Medications Current Medications Medications (Trade) Dose Ordered Sig/Anaya Route Start Time Stop Time Status Last Admin (NS Flush) 2 ml UNSCH PRN IV FLUSH 11/30/17 17:15 (NS Flush) 2 ml BID IV FLUSH 11/30/17 21:00 12/01/17 21:26 (Tylenol) 650 mg Q4H PRN PO 11/30/17 17:15 12/01/17 21:26 (Narcan Inj) 0.4 mg UNSCH PRN IV PUSH 11/30/17 17:15 (Milk Of Magnesia Liq) 30 ml Q12H PRN PO 11/30/17 17:15 (Senokot) 17.2 mg Q12H PRN PO 11/30/17 17:15 (Dulcolax Supp) 10 mg DAILY PRN RECTAL 11/30/17 17:15 (Lactulose Liq) 30 ml DAILY PRN PO 11/30/17 17:15 (Lipitor) 80 mg HS PO 11/30/17 21:00 12/01/17 21:26 (Lopressor) 25 mg Q12HR PO 12/01/17 09:00 12/01/17 21:26 (Aspirin Chew) 81 mg DAILY CHEW 12/01/17 09:00 12/01/17 08:10 (Ativan Inj) 0.5 mg UNSCH PRN IV PUSH 12/01/17 09:45 12/02/17 09:44 (Xylocaine 1% Inj (50 ml)) 10 ml UNSCH PRN INFIL 12/01/17 09:45 12/02/17 09:44 (Imdur) 60 mg DAILY@07 PO 12/01/17 09:45 12/02/17 05:47 Vital Signs / I&O Vital Signs Date Time Temp Pulse Resp B/P (MAP) Pulse Ox O2 Delivery O2 Flow Rate FiO2 12/02/17 04:00 70 12/02/17 03:00 98.4 68 14 124/70 (88) 95 12/02/17 03:00 67 12/02/17 02:00 66 12/02/17 01:00 62 12/02/17 00:00 64 12/01/17 23:00 66 12/01/17 23:00 97.8 65 22 136/77 (96) 95 12/01/17 22:00 74 12/01/17 21:31 96 12/01/17 21:00 80 12/01/17 20:00 76 12/01/17 19:00 98.1 80 20 137/84 (101) 95 12/01/17 19:00 80 12/01/17 17:00 102 12/01/17 16:00 94 12/01/17 15:00 96 12/01/17 15:00 98.5 97 18 102/63 (76) 96 12/01/17 14:00 90 12/01/17 13:00 90 12/01/17 12:00 88 12/01/17 11:00 91 12/01/17 11:00 98.5 95 20 111/64 (80) 95 12/01/17 10:11 95 21 12/01/17 08:00 112 I/O 12/01/17 12/01/17 12/01/17 12/02/17 12/02/17 12/02/17 07:00 15:00 23:00 07:00 15:00 23:00 Intake Total 480 ml 42 ml 480 ml 480 ml Output Total 550 ml 600 ml Balance -70 ml 42 ml -120 ml 480 ml Intake Oral 480 ml 480 ml 480 ml IV Total 42 ml Output Urine Total 550 ml 600 ml # Voids 3 # Bowel Movements 0 0 Physical Exam GENERAL: Well-developed well-nourished. In no acute distress. NECK: No carotid bruits. No JVD. CARDIOVASCULAR: Regular rate and rhythm. No murmur appreciated. Right groin site clean. RESPIRATORY: No accessory muscle use. Clear to auscultation. Breath sounds equal bilaterally. MUSCULOSKELETAL: No clubbing or cyanosis. No edema. NEUROLOGICAL: Awake and alert. Normal speech. Laboratory Laboratory Tests Test 12/01/17 11:00 12/02/17 05:09 Activated Partial Thromboplast Time 27.2 SEC White Blood Count 8.1 TH/MM3 Red Blood Count 4.27 MIL/MM3 Hemoglobin 13.3 GM/DL Hematocrit 39.4 % Mean Corpuscular Volume 92.3 FL Mean Corpuscular Hemoglobin 31.2 PG Mean Corpuscular Hemoglobin Concent 33.8 % Red Cell Distribution Width 12.7 % Platelet Count 260 TH/MM3 Mean Platelet Volume 8.3 FL Neutrophils (%) (Auto) 57.9 % Lymphocytes (%) (Auto) 25.9 % Monocytes (%) (Auto) 10.3 % Eosinophils (%) (Auto) 5.2 % Basophils (%) (Auto) 0.7 % Neutrophils # (Auto) 4.7 TH/MM3 Lymphocytes # (Auto) 2.1 TH/MM3 Monocytes # (Auto) 0.8 TH/MM3 Eosinophils # (Auto) 0.4 TH/MM3 Basophils # (Auto) 0.1 TH/MM3 CBC Comment DIFF FINAL Differential Comment Blood Urea Nitrogen 23 MG/DL Creatinine 1.06 MG/DL Random Glucose 95 MG/DL Calcium Level 8.3 MG/DL Sodium Level 140 MEQ/L Potassium Level 4.0 MEQ/L Chloride Level 104 MEQ/L Carbon Dioxide Level 26.7 MEQ/L Anion Gap 9 MEQ/L Estimat Glomerular Filtration Rate 68 ML/MIN Imaging Last Impressions Chest X-Ray 11/30/17 1332 Signed Impressions: Service Date/Time: Thursday, November 30, 2017 13:42 - CONCLUSION: Compensated cardiomegaly, history of bypass otherwise negative Tobias Spencer MD FACR (Trey Leon) Assessment and Plan Problem List: (1) New onset a-fib ICD Codes: I48.91 - Unspecified atrial fibrillation Status: Acute (2) NSTEMI (non-ST elevated myocardial infarction) ICD Codes: I21.4 - Non-ST elevation (NSTEMI) myocardial infarction Status: Acute Assessment and Plan 77 yo M with history of CAD, CABG x 5 (~11 years ago) who presented with chest pain and new onset afib. NSTEMI: LHC 12/01/16 showed 4/5 finger grafts patent. Recommend medical management with aspirin, statin, beta ko, and long-acting nitrate. New-onset paroxysmal afib: Continue metoprolol for rate control. CHADS-VASC>3, agreeable for Apixaban. Ok to DC from cardiac standpoint (Trey Leon) Assessment and Plan asa 81 eliquis statin isosorbide FU 2-3 weeks ok for dc today (Familia Rodriguez MD) Trey Leon Dec 02, 2017 07:54 Familia Rodriguez MD Dec 02, 2017 08:15
[2017-12-02] MEDS: METOPROLOL TARTRATE 25 MG TAB PO SCH (08:31)
[2017-12-02] MEDS: ASPIRIN 81 MG CHEW TAB CHEW SCH (08:31)
[2017-12-02] MEDS: SODIUM CHLORIDE 0.9% FLUSH 10 ML FLUSH IV FLUSH SCH (08:32)
[2017-12-02] MEDS ORDERED: APIXABAN 5 MG TABLET PO SCH (09:00)
[2017-12-02] MEDS ORDERED: APIX5TAB PO (10:47)
[2017-12-02] MEDS ORDERED: ATOR80TA45 PO (10:47)
[2017-12-02] MEDS ORDERED: ISOS60TA PO (10:47)
[2017-12-02] MEDS ORDERED: ASPI81 CHEW (10:47)
[2017-12-02] MEDS ORDERED: METO25TA3 PO (10:47)
--- NOTE | 2017-12-02 10:52 | HHI.DS ---
Discharge Summary Admission Date Nov 30, 2017 at 5:12 pm Discharge Date: Dec 02, 2017 Admitting Diagnosis NONSTEMI, NEW ONSET AFIB (1) NSTEMI (non-ST elevated myocardial infarction) ICD Code: I21.4 - Non-ST elevation (NSTEMI) myocardial infarction Diagnosis: Principal Status: Acute (2) New onset a-fib ICD Code: I48.91 - Unspecified atrial fibrillation Diagnosis: Principal Status: Acute (3) Hx of coronary artery bypass graft ICD Code: Z95.1 - Presence of aortocoronary bypass graft Procedures Cardiac catheterization 12/01/2017 1. Severe [place] three-vessel coronary artery disease. 2. 4 of 5 coronary bypass grafts widely patent. Echo 12/01/2017 CONCLUSIONS The left ventricular systolic function is normal with an estimated ejection fraction in the range of 55-60%. Normal left ventricular size. Wall thickness is measured at the upper limits of normal. No regional wall motion abnormalities are present. The left atrial size is mildly dilated. Trace mitral valve regurgitation. Calcification of the right coronary cusp. Brief History - From Admission Mr. Condon is a pleasant 77 year old male with a history of CAD s/p CABG who presented to the ED due to a burning sensation in his throat, substernal chest with radiation to his neck to bilateral ears. He reports onset of these symptoms approximately two weeks ago. He attributed these symptoms to acid reflux. He did not have any nausea, vomiting, diaphoresis. Last night his symptoms were particularly worse and kept him up all night. Nothing seems to make it worse or bettter. He went to an urgent care and an EKG revealed Atrial Fibrillation and was directed to come to the ED. At the time of this interview, he reports no chest pain, shortness of breath, fever, chills. No cough, abdominal pain. No changes in bladder or bowel habits. He has taken a full dose (325mg) aspirin today. CBC/BMP: 12/02/17 0509 12/02/17 0509 Significant Findings Laboratory Tests Test 11/30/17 15:17 11/30/17 19:17 12/01/17 00:14 12/01/17 00:18 Monocytes (%) (Auto) 9.3 % (0.0-8.0) Eosinophils (%) (Auto) 5.8 % (0.0-4.0) Eosinophils # (Auto) 0.5 TH/MM3 (0-0.4) Blood Urea Nitrogen 20 MG/DL (7-18) Total Protein 9.6 GM/DL (6.4-8.2) Alkaline Phosphatase 172 U/L (45-117) Aspartate Amino Transf (AST/SGOT) 81 U/L (15-37) Alanine Aminotransferase (ALT/SGPT) 143 U/L (12-78) Estimat Glomerular Filtration Rate 60 ML/MIN (>89) Creatine Kinase MB 9.6 NG/ML (0.5-3.6) Troponin I 4.75 NG/ML (0.02-0.05) 5.17 NG/ML (0.02-0.05) 5.98 NG/ML (0.02-0.05) B-Type Natriuretic Peptide 390 PG/ML (0-100) Red Blood Count 4.48 MIL/MM3 (4.50-5.90) Test 12/01/17 11:00 12/02/17 05:09 Red Blood Count 4.27 MIL/MM3 (4.50-5.90) Monocytes (%) (Auto) 10.3 % (0.0-8.0) Eosinophils (%) (Auto) 5.2 % (0.0-4.0) Blood Urea Nitrogen 23 MG/DL (7-18) Calcium Level 8.3 MG/DL (8.5-10.1) Estimat Glomerular Filtration Rate 68 ML/MIN (>89) Imaging Last Impressions Chest X-Ray 11/30/17 1332 Signed Impressions: Service Date/Time: Thursday, November 30, 2017 13:42 - CONCLUSION: Compensated cardiomegaly, history of bypass otherwise negative Tobias Spencer MD FACR Pt update on day of discharge Patient is currently doing well. Denies any chest pain, shortness of breath, fever or chills. He would like to go home. Hospital Course Mr. Condon is a pleasant 77 year old male with a history of CABG who presented to the ED due to substernal burning sensation along with throat burning sensation and radiation to the ears. ED work up indicated new onset Atrial fibrillation as well as elevation in Troponin. NSTEMI - Status post cardiac catheterization which shows single bypass down. No stenting. Cardiology cleared for discharge. Echocardiogram with preserved ejection fraction - Continue statin, beta ko, aspirin, long-acting nitrate. Atrial fibrillation, likely new onset - [id number] score is probably 2(age 77, CHF). - Apixaban 5mg BID for Afib Stroke prophylaxis. - Continue Metoprolol 25mg BID. Hyperlipidemia - Lipitor 80mg QHS. Full code. Apixaban. Patient will follow up with Dr. Rodriguez in two weeks. Pt Condition on Discharge: Good Discharge Disposition: Discharge Home Discharge Time: > 30 minutes Discharge Instructions DIET: Follow Instructions for: Heart Healthy Diet Activities you can perform: Regular-No Restrictions Follow up Referrals: Cardiology - 2 Weeks with Familia Rodriguez MD PCP Follow-up - 1 Week New Medications: Apixaban (Eliquis) 5 Mg Tab 5 MG PO BID for Blood Clot Prevention, #60 TAB 3 Refills Aspirin (Tgt Aspirin) 81 Mg Chw 81 MG CHEW DAILY for Blood Clot Prevention, #90 EA Atorvastatin (Atorvastatin) 80 Mg Tab 80 MG PO HS for Cholesterol Management, #90 TAB 3 Refills Isosorbide Mononitrate ER (Isosorbide Mononitrate ER) 60 Mg Tab 60 MG PO DAILY@07 for Heart, #90 TAB Metoprolol Tartrate (Metoprolol Tartrate) 25 Mg Tab 25 MG PO Q12HR for Heart, #60 TAB 3 Refills Discontinued Medications: Aspirin (Aspirin) 325 Mg Tab 325 MG PO DAILY, TAB 0 Refills Metoprolol Succinate ER 24 HR (Metoprolol Succinate ER 24 HR) 100 Mg Tab 100 MG PO DAILY, TAB 0 Refills Abigail León DO Dec 02, 2017 10:52 am
== END 2017-12-02 11:27 | disposition home or self-care (01) | DRG 281 ==
LOC: NEPD 13:09 → NEDA 17:12 → HCIS 19:51
PROVIDERS: ADMIT Hospitalist; ATTEND Hospitalist
PROC: B2131ZZ Fluoroscopy of Multiple Coronary Artery Bypass Grafts using Low Osmolar Contrast (ICD-10-PCS; 2017-12-01)
PROC: B2181ZZ Fluoroscopy of Left Internal Mammary Bypass Graft using Low Osmolar Contrast (ICD-10-PCS; 2017-12-01)
PROC: B2111ZZ Fluoroscopy of Multiple Coronary Arteries using Low Osmolar Contrast (ICD-10-PCS; 2017-12-01)
PROC: 4A023N7 Measurement of Cardiac Sampling and Pressure, Left Heart, Percutaneous Approach (ICD-10-PCS; principal; 2017-12-01 09:30)
DX: I21.4 Non-ST elevation (NSTEMI) myocardial infarction (principal); T82.858A Stenosis of other vascular prosthetic devices, implants and grafts, initial encounter; I50.30 Unspecified diastolic (congestive) heart failure; I48.0 Paroxysmal atrial fibrillation; Z95.1 Presence of aortocoronary bypass graft; E78.5 Hyperlipidemia, unspecified; I25.10 Atherosclerotic heart disease of native coronary artery without angina pectoris; Z87.891 Personal history of nicotine dependence; Y71.3 Surgical instruments, materials and cardiovascular devices (including sutures) associated with adverse incidents; K21.9 Gastro-esophageal reflux disease without esophagitis; I34.0 Nonrheumatic mitral (valve) insufficiency
CPT/HCPCS: 71046; 80048; 80053; 82550; 82552; 83735; 83880; 84484; 85025; 85027; 85610; 85730; 93005; 93306; 93454; 96372; 96374; 99152; 99153; C1769; C1893; J1644; J1650; J2250; J3010; Q9967